=== PATIENT | female | born 1970 | race Caucasian/White ===

== ENCOUNTER → 2016-04-22 | Outpatient (CLI) | payer OTHER ==
[2016-04-22 11:27] LABS: ABSOLUTE EOSINOPHILS # (AUTO) 0.1 10^3/uL (0.0-0.6); ABSOLUTE MONOCYTES (AUTO) 0.5 10^3/uL (0.1-1.4); ABSOLUTE NEUT (AUTO) 4.3 10^3/uL (1.7-8.2); BASOPHILS % (AUTO) 0.3 % (0-2); EOSINOPHILS % (AUTO) 1.4 % (0-6); HEMATOCRIT 36.7 % (36.0-47.0); HEMOGLOBIN 12.5 g/dL (12.0-15.5); HGB HCT DIFFERENCE 0.8; LYMPHOCYTES % (AUTO) 28.7 % (13-45); MEAN CORPUSCULAR HEMOGLOBIN 26.3 pg (27.0-33.4); MEAN CORPUSCULAR HGB CONC 34.1 g/dL (32.0-36.0); MEAN CORPUSCULAR VOLUME 77 fl (80-97); MONOCYTES % (AUTO) 7.3 % (3-13); RED BLOOD COUNT 4.76 10^6/uL (3.72-5.28); RED CELL DISTRIBUTION WIDTH 13.8 % (11.5-14.0); SEGMENTED NEUTROPHILS % (AUTO) 62.3 % (42-78); WHITE BLOOD COUNT 6.9 10^3/uL (4.0-10.5)
[2016-04-22 11:40] LABS: ALANINE AMINOTRANSFERASE 29 U/L (9-52); ALBUMIN 4.5 g/dL (3.5-5.0); ALKALINE PHOSPHATASE 83 U/L (38-126); ANION GAP 10 (5-19); ASPARTATE AMINO TRANSFERASE 17 U/L (14-36); BILIRUBIN,TOTAL 0.4 mg/dL (0.2-1.3); BLOOD UREA NITROGEN 12 mg/dL (7-20); CALCIUM 9.7 mg/dL (8.4-10.2); CARBON DIOXIDE 26 mmol/L (22-30); CHLORIDE 103 mmol/L (98-107); CREATININE RESULT 0.65 mg/dL (0.52-1.25); GLUCOSE 89 mg/dL (75-110); POTASSIUM 4.5 mmol/L (3.6-5.0); SODIUM 139.2 mmol/L (137-145); TOTAL PROTEIN 7.4 g/dL (6.3-8.2)
[2016-04-22 11:53] LABS: CREATINE KINASE MB < 0.22 ng/mL (<4.55); TROPONIN I < 0.012 ng/mL
== END ==
LOC: OD 10:47
PROVIDERS: ATTEND Nurse Practitioner Primary Care
DX: R07.9 Chest pain, unspecified (principal)
CPT/HCPCS: 36415; 80053; 82553; 84484; 85025

== ENCOUNTER → 2016-06-20 | Outpatient (CLI) | payer OTHER | LOC: RAD 09:06 | PROVIDERS: ATTEND Nurse Practitioner Primary Care | DX: R13.10 Dysphagia, unspecified (principal); K21.9 Gastro-esophageal reflux disease without esophagitis | CPT/HCPCS: 74220 ==

== ENCOUNTER → 2016-08-12 | Outpatient (CLI) | payer OTHER ==
--- NOTE | 2016-08-12 09:36 | ST Modified Barium Swallow ---
Recommendation - Recommendations Recommendations: 1) DIET: recommend continue current diet. 2) Pt and MD may wish to consider brief course of speech therapy for mild oropharyngeal dysphagia ; trace-mild residuals on pureed solids, cleared with second swallow. 3) Symptoms may be consistent with GI related issues. Per barium swallow study, reflux to the level of the cervical spine. Possible upper esophgeal dismotility noted on puree during MBSS, discussed with RA. SUMMARY: Pt presents with a mild oropharyngeal dysphagia characterized by mildly reduced base of tongue, minimally reduced laryngeal elevation, minimally reduced criopharyngeal opening , mildly reduced pressure generation resulting in mild residuals of puree in the valleculae and trace in the pyriforms. Residuals cleared with pt initiated second swallow. Possibility that trace to mild pharyngeal residuals causing coughing and choking or possibly related to GI issues (e.g. reflux, possible dismotility). Medical Diagnoses - Medical Diagnoses Medical Diagnosis Description & ICD-10 Code(s): dysphagia R13.10 Other Medical Diagnoses/Co-Morbidities: GERD - ICD-10 Tx Diagnosis Coding (1) Dysphagia, oropharyngeal phase ICD-10 Code(s): R13.12 - DYSPHAGIA, OROPHARYNGEAL PHASE ST Modified Barium Swallow - General Date: 08/12/16 Referring Physician: Dr Krystle Calderon Risks/Precautions: None Date of Onset: 06/13/03 Reason for Referral: dysphagia - History History obtained from: Patient -: Medical - Pt reports choking often on fruits and other novel solid food items. Pt states can be "soft or hard". Reports events where she choked on sushi and moldovan valdez on separate occasions. Pt denies coughing or choking on liquids. Reports globus sensation in mid to lower neck. Pt states has most difficulty when "food moves to the back of the throat" or "tongue" and she can' t push it down. Pt compares it to "having to swallow quickly when eating something when you are waiting on the phone then someone answers." Pt also reports sensation of "narrowing at the top" of her throat, states "larger chuncks feel like they come back up." Pt reports most recent and only PNA was in 2001, pt reports aspirated Listerine during "2 minute gargle." Pt reports PMH of GERD, aspiration PNA in 2001, tonsillectomy in July of 2012 due to tonsil stones, and recent completion of barium swallow study. ST was provided results of barium swallow study by radiology depatment, reported "esophageal reflux to the level of the cervical spine." Pt has reported concerns for "nerve damage" from tonsillectomy. Pt also stated "You won't see anything in the study , I know because it doesn't happen frequently enough." Medications: Pt reports: Protonix, synthroid, metformin Allergies: pt reports: welbutrin, mangos - Functional Status Prior Functional Status: INDEPENDENT: feeding Current Functional Limitations: feeding - Subjective Patient/caregiver goal(s): safe swallow, r/o aspiration Cognitive-Linguistic Function: WNL Speech Intelligibility: WNL Current Nutritional Means: PO Current PO diet: Regular Current symptoms: Coughing, Aspiration - per pt, c/o Globus sensation Pain: 0/5 - Objective Assessment: Upright, Left Lateral - Food Trials Used Food trials used: Thin liquids, Pureed, Regular - Oral-Motor Skills Dentition: Full Velo-pharyngeal function: Unremarkable Laryngeal Function: Volitional Swallow - Assessment Oral prep: Normal Labial closure: Adequate Leakage: None Mastication: Adequate Lingual Movement: Normal Oral stage: Normal for this Procedure - Pharyngeal Stage Initiation of Pharyngeal Stage Reflex: Normal Decreased laryngeal elevation: Yes - mild Reduced Velopharyngeal Closure: no Reduced pressure generation: Yes - mild reduced tongue-based retraction: Yes - mild Pre-swallow pooling in valleculae: None Pre-Swallow pooling in pyriforms: None Reduced Thyro-Hyoid approximation: No Reduced epiglottic excursion: No Reduced pharyngeal peristalsis/contraction: No Post-swallow residulas vallecular: Mild - on puree Post-Swallow residuals in pyriforms: Mild - trace on puree Reduced Cricopharyngeal opening: Yes - mild - Fall Risk Assessment Medications/Conditions that increase fall risks include: Antidepressants, sedatives, anti-arrhythmic, diuretic, benzodiazipenes, neuroleptics. BP regulation problems, cardiac problems, balance or gait deficits, neurological problems. Is patient considered at risk for falls: no Fall Risk Actions Taken: No action needed - Behavioral Observations During evaluation process patient: was cooperative, able to answer questions, provided medical history - Treatment / Educational Needs: Treatment/Education Needs: Treatment consisted of patient education on the role of the Speech Pathologist. Patient's plan of care and golas were communicated as well as scheduling and attendance policies. Recommendations for initial home program were shared. Patient demonstrated understanding and verbalized agreement. - Impression/Summary Laryngeal Penetration: No Tracheal Aspiration: no Patient presents with: Oral-Pharyngeal dysph. - mild Risk of Aspiration: Mild - minimal-mild - Recommendations NPO: no Pt/Family education and followup with MD: Yes Dysphagia therapy with POOL TABLE OPERATOR: yes, dysphagia therapy Recommended techniques: Fully Upright During Meal, Small Bites and Sips Supervision: Distant Information, Precautions and Recommendations: Patient (Written), Patient (Verbal ) - Time Total Time: 30 - Plan of Care Strategies to optimize patient understanding include:: ongoing assessment of educational needs, implementation of educational strategies, and re-education. - - -: Thank you for the opportunity to work with this patient and his/her family. Should you have any questions about this patient's plan or progress, I can be reached at [phone]. Charge G Code? - - -: No
--- NOTE | 2016-08-12 10:45 | RADIOLOGY REPORT (SQ) ---
EXAM DESCRIPTION: JOSEPHINE SWALLOW COMPLETED DATE/TIME: 08/12/2016 8:26 am REASON FOR STUDY: DYSPHAGIA (R13.10) R13.10 DYSPHAGIA, UNSPECIFIED COMPARISON: None. TECHNIQUE: Videofluoroscopic swallowing examination was performed in conjunction with speech patholo gy. Videofluoroscopic imaging was obtained and reviewed and these are the findings: RADIATION DOSE: 1.03 minutes fluoro time 2 images saved to PACS. LIMITATIONS: None FINDINGS: The patient was brought into the fluoro room and placed upright on a modified barium swall ow chair. The patient was then given multiple consistencies mixed with barium to swallow under live fluoroscopic video guidance. According to the Speech Pathologist there was no penetration or aspirat ion. IMPRESSION: NO EVIDENCE OF PENETRATION OR ASPIRATION.PLEASE SEE SPEECH PATHOLOGIST REPORT FOR OTHER FINDINGS AND RECOMMENDATIONS. COMMENT: None Quality ID [id number]: Final reports for procedures using fluoroscopy that document radiation exposure fara raisa, or exposure time and number of fluorographic images (if radiation exposure indices are not avail able) TECHNICAL DOCUMENTATION: JOB ID: [id number] [employer]- All Rights Reserved
== END ==
LOC: RAD 07:54
PROVIDERS: ATTEND Nurse Practitioner Primary Care
DX: R13.10 Dysphagia, unspecified (principal)
CPT/HCPCS: 74230